=== PATIENT | female | born 1965 | race Caucasian/White ===

== ENCOUNTER 2017-04-29 16:19 | Emergency (ER) | payer OTHER ==
[2017-04-29 16:45] VITALS: BP 111/82; PULSE 75; TEMP 98.9; BMI 42.7
--- NOTE | 2017-04-29 17:08 | PDOC ---
History of Present Illness - General History Source: Patient Exam Limitations: No Limitations - History of Present Illness Initial Comments: 04/29/17 17:20 Patient is a 52 year old female with a significant past medical history of Asthma, Sinus infection, Atypical Pneumonia(30 years ago), HTN, Hypothyroidism, who presents to the ED with complaints of fatigue and malaise episodes for 2 days. Patient reports feeling lethargic and fatigue since Friday after working in her garden all day friday. She reports full body aching friday morning, stating her skin hurt everywhere, secondary to fatigue. Patient reports intermittent episodes of sweating and chills secondary to fatigue. She states intermittent episodes of sore throat with, problems swallowing on the left side of throat secondary to fatigue. She reports taking Flonase yesterday afternoon with minimal relief to symptoms. Patient reports bowel movement this morning was found to have a yellow coloration. Denies fever, coughing. Denies headache, dizziness. Denies chest pain, SOB. Denies constipation, diarrhea. Denies any other symptoms. Allergies: Seasonal Allergies Social history: No smoking, No alcohol, No illicit drugs. Family Medical Hx of cardiac complications. Surgical history: Right Ovary removal. Cataract surgery x2. PMD: None <Manas Osorio - Last Filed: 04/29/17 17:20> <Zena Dobbs - Last Filed: 05/03/17 00:42> - General Chief Complaint: Respiratory Stated Complaint: CONGESTION,FLU LIKE SYMPTOMS AND CHEST HEAVINESS Time Seen by Provider: 04/29/17 16:31 Past History <Manas Osorio - Last Filed: 04/29/17 17:20> - Past Medical History Asthma: Yes HTN: Yes Seizures: Yes (HYPO) - Psycho/Social/Smoking Cessation Hx Anxiety: No Suicidal Ideation: No Smoking History: Never smoked Have you smoked in the past 12 months: No Information on smoking cessation initiated: No Hx Alcohol Use: No Drug/Substance Use Hx: No Substance Use Type: None <Zena Dobbs - Last Filed: 05/03/17 00:42> - Past Medical History Allergies/Adverse Reactions: Allergies Allergy/AdvReac Type Severity Reaction Status Date / Time No Known Allergies Allergy Verified 04/29/17 16:35 Home Medications: Ambulatory Orders Azithromycin [Zithromax 250mg Tablets -] 250 mg PO UTDICT #6 tab 04/29/17 Budesonide/Formeterol Fumarate [SYMBICORT 80/4.5mcg -] 1 inh PO PRN PRN Hydrochlorothiazide [Hctz -] 12.5 mg PO DAILY 04/29/17 Levothyroxine [Synthroid -] 112 mcg PO DAILY 04/29/17 Lisinopril 10 mg PO DAILY 04/29/17 Montelukast Na [Singulair -] 10 mg PO HS 04/29/17 Review of Systems - Review of Systems Able to Perform ROS?: Yes Comments:: 04/29/17 17:20 GENERAL/CONSTITUTIONAL: + Fatigue. + Chills. + Sweating. No fever. HEAD, EYES, EARS, NOSE AND THROAT: +Sore throat with trouble swallowing left side. No change in vision. No ear pain or discharge. GASTROINTESTINAL: No nausea, vomiting, diarrhea or constipation. GENITOURINARY: No dysuria, frequency, or change in urination. CARDIOVASCULAR: No chest pain or shortness of breath. RESPIRATORY: No cough, wheezing, or hemoptysis. MUSCULOSKELETAL: + Full body ache. + Multiple joint pain. No muscle swelling or pain. No neck or back pain. SKIN: No rash NEUROLOGIC: No headache, vertigo, loss of consciousness, or change in strength/ sensation. ENDOCRINE: No increased thirst. No abnormal weight change. HEMATOLOGIC/LYMPHATIC: No anemia, easy bleeding, or history of blood clots. ALLERGIC/IMMUNOLOGIC: No hives or skin allergy. <Manas Osorio - Last Filed: 04/29/17 17:20> *Physical Exam - Vital Signs Last Vital Signs Temp Pulse Resp BP Pulse Ox 98.9 F 75 20 111/82 98 04/29/17 16:21 04/29/17 16:21 04/29/17 16:21 04/29/17 16:21 04/29/17 16:21 <Manas Osorio - Last Filed: 04/29/17 17:20> - Vital Signs Last Vital Signs Temp Pulse Resp BP Pulse Ox 98.9 F 75 20 111/82 98 04/29/17 16:21 04/29/17 16:21 04/29/17 16:21 04/29/17 16:21 04/29/17 16:21 - Physical Exam Comments: GENERAL: Awake, alert, and fully oriented, in no acute distress HEAD: No signs of trauma EYES: PERRLA, EOMI, sclera anicteric, conjunctiva clear ENT: Auricles normal inspection, hearing grossly normal, nares patent, oropharynx clear without exudates. Moist mucosa. TMs normal B/L. NECK: Normal ROM, supple, no JVD or masses. +Anterior cervical lymphadenopathy LUNGS: Dec air entry R base. Otherwise no adventitious sounds. HEART: Regular rate and rhythm, normal S1 and S2, no murmurs, rubs or gallops ABDOMEN: Soft, nontender, normoactive bowel sounds. No guarding, no rebound. No masses EXTREMITIES: Normal range of motion, no edema. No clubbing or cyanosis. No cords, erythema, or tenderness NEUROLOGICAL: Cranial nerves II through XII grossly intact. Normal speech, normal gait SKIN: Warm, Dry, normal turgor, no rashes or lesions noted. <Zena Dobbs - Last Filed: 05/03/17 00:42> Medical Decision Making - Medical Decision Making Patient with fever, body aches, congestion. Recently was gardening prior to onset of symptoms. No recent rashes. She also notes throat pain and irritation. Titers for lyme and EBV sent. CXR read as positive by radiology. Will give Z- pack. <Zena Dobbs - Last Filed: 05/03/17 00:42> *DC/Admit/Observation/Transfer - Attestations Scribe Attestion: 04/29/17 17:23 Documentation prepared by Manas Osorio, acting as medical coding auditor for Zena Dobbs MD. <Manas Osorio - Last Filed: 04/29/17 17:20> - Discharge Dispostion Admit: No <Zena Dobbs - Last Filed: 05/03/17 00:42> Diagnosis at time of Disposition: Pneumonia Qualifiers: Pneumonia type: due to unspecified organism Laterality: right Lung location: middle lobe of lung Qualified Code(s): J18.1 - Lobar pneumonia, unspecified organism - Discharge Dispostion Disposition: HOME Condition at time of disposition: Stable - Prescriptions Prescriptions: Azithromycin [Zithromax 250mg Tablets -] 250 mg PO UTDICT #6 tab - Patient Instructions Printed Discharge Instructions: DI for Pneumonia -- Adult
[2017-04-29 17:52] LABS: PH,URINE 5.5 (4.5-8); URINE APPEARANCE Clear; URINE BILIRUBIN Negative (NEGATIVE); URINE GLUCOSE (UA) Negative (NEGATIVE); URINE KETONE Negative (NEGATIVE); URINE NITRITE Negative (NEGATIVE); URINE PROTEIN Negative (NEGATIVE); URINE UROBILINOGEN 0.2 (0.2-1.0)
[2017-04-29 17:54] LABS: URINE BLOOD Trace-intact (NEGATIVE); URINE COLOR YELLOW; URINE LEUK ESTERASE 1+ (NEGATIVE)
[2017-04-29 18:41] LABS: URINE RBC 0-1 /hpf (0-3)
[2017-04-29 18:42] LABS: URINE BACTERIA FEW /hpf (NEGATIVE)
[2017-04-30 16:31] LABS: EPSTEIN BARR ANTIBODY IgM <36.0 U/mL (0.0-35.9)
== END 2017-04-29 18:49 | disposition home or self-care (01) ==
LOC: FER 16:19
DX: J18.1 Lobar pneumonia, unspecified organism (principal); J45.909 Unspecified asthma, uncomplicated; I10 Essential (primary) hypertension; E03.9 Hypothyroidism, unspecified
CPT/HCPCS: 36415; 71020-TC; 81003; 81015; 86665; 87070; 87430; 99281-25